=== PATIENT | female | born 1970 | race Caucasian/White ===

== ENCOUNTER → 2018-05-13 13:46 | Outpatient (CLI) | payer BC, SELFPAY ==
--- NOTE | 2018-05-13 13:54 | BI_ITS ---
MAMMOGRAPHY - BILATERAL DIAGNOSTIC REASON FOR Exam: Female, 48 years old. Left breast palpable lump per patient. PERTINENT HISTORY: See above. Family breast carcinoma, mother age 65 and 2 maternal great aunts impression age 60 each. TECHNIQUE: Digital examination. Mediolateral oblique (MLO) and craniocaudad (CC) views of both breasts were obtained. CAD: Yes COMPARISON: None available. Prior mammograms become available, addendum can be placed after comparison. FINDINGS: Breast Composition: There are scattered areas of fibroglandular density. There is no significant architectural distortion, asymmetric density, dominant mass, abnormal microcalcification cluster, adenopathy, skin thickening or nipple retraction identified including left breast upper-outer quadrant marked by a radiopaque triangular marker. BI/DIAG MAMM W/CAD, BILAT IMPRESSION: No definitive mammographic finding of malignancy identified. Recommend left breast targeted ultrasound imaging for further evaluation. ASSESSMENT CATEGORY: BIRADS Category 0: Incomplete. Need additional imaging evaluation. A letter regarding these results will be sent to the patient by the facility within 30 days. FOLLOW UP RECOMMENDATION: LEFT BREAST TARGETED Ultrasound Recommended. (I) Negative mammographic and/or ultrasound results should not deter biopsy as a palpable lesion should be followed on clinical grounds and biopsy performed if clinically persistent for greater than 3 months or increasing size. Clinical correlation required. Approximately 10% of breast cancers Are Not detected by mammography. A normal mammogram should not delay biopsy of a clinically suspicious abnormality. Electronically Signed: Jesus Kevin, at 12:26 EDT Tel , Service support ,
--- NOTE | 2018-05-13 13:55 | US_ITS ---
STUDY: ULTRASOUND BREAST - LEFT REASON FOR EXAM: Female, 48 years old. Left breast lump, palpable reported by patient. TECHNIQUE: Axial and longitudinal targeted images of the LEFT breast were performed with a high resolution ultrasound transducer in the area of clinical concern marked by a triangular radiopaque marker was mammogram obtained same date. COMPARISON: No prior breast ultrasound imaging available. Correlation same date bilateral mammogram 05/13/2018. FINDINGS: LEFT Breast: No sonographic abnormality is identified. No hypoechoic, heterogeneous or hyperechoic lesion identified. US/Breast Limited Unilateral IMPRESSION: NEGATIVE LEFT BREAST TARGETED ULTRASOUND AND NEGATIVE BILATERAL MAMMOGRAM. RECOMMEND LEFT MAMMOGRAM AND POSSIBLE ULTRASOUND CLINICALLY INDICATED IN 6 MONTHS FOR SHORT-TERM INTERVAL FOLLOW-UP OF PROBABLY BENIGN FINDINGS. PLEASE SEE BELOW COMMENTS. IF CLINICALLY INDICATED, MRI BREASTS MAY BE HELPFUL. ASSESSMENT CATEGORY: BIRADS Category 3: Probably Benign - Short-Interval Follow-up Suggested. A letter regarding these results will be sent to the patient by the facility within 30 days. Negative mammographic and/or ultrasound results should not deter biopsy as a palpable lesion should be followed on clinical grounds and biopsy performed if clinically persistent for greater than 3 months or increasing size. Clinical correlation required. Approximately 10% of breast cancers Are Not detected by mammography. A normal mammogram should not delay biopsy of a clinically suspicious abnormality. Electronically Signed: Jesus Brown, at 12:54 EDT Tel , Service support ,
== END ==
PROVIDERS: Family Provider Family Medicine; PCP Family Medicine; Visit Provider Family Medicine
DX: N63.20 Unspecified lump in the left breast, unspecified quadrant (principal)
CPT/HCPCS: 76642; 77062; 77066; G0279

== ENCOUNTER → 2021-01-17 13:10 | Outpatient (CLI) | payer BC, SELFPAY ==
[2016-04-03 06:46] VITALS: BMI 34.0
--- NOTE | 2021-01-17 13:20 | RAD_ITS ---
STUDY: X-RAY - ABDOMEN/PELVIS REASON FOR EXAM: Female, 50 years old. HX KIDNEY STONE TECHNIQUE: Single AP view of the abdomen / pelvis. COMPARISON: None. FINDINGS: Normal visualized lung bases. There is a moderate amount of colonic fecal material. 1.2 cm calculus in the mid upper pole of the left kidney. Normal soft tissue structures. Normal visualized osseous structures. RAD/Abdomen Single View IMPRESSION: 1.2 cm calculus in the mid upper pole of the left kidney. Electronically Signed: Dakotah Murdock MD at 14:48 EDT , Service support ,
== END ==
LOC: RAD 13:13
PROVIDERS: PCP Family Medicine; Referring Provider Family Medicine; Visit Provider Family Medicine
DX: N20.0 Calculus of kidney (principal); Z87.442 Personal history of urinary calculi
CPT/HCPCS: 74018